=== PATIENT | male | born 1985 | race Caucasian/White ===

== ENCOUNTER 2021-01-09 04:29 | Emergency (ER) | payer OTHER, SELFPAY ==
[2021-01-09 05:21] VITALS: BP 173/95; PULSE 69; RESP 16; TEMP 36.3; O2SAT 97; BMI 25.1
--- NOTE | 2021-01-09 07:10 | ED.DENTAL ---
HPI - Dental/Oral General Chief complaint: Dental/Oral Stated complaint: left side tooth pain Time Seen by Provider: 01/09/21 04:35 Source: patient Mode of arrival: Ambulatory Limitations: no limitations History of Present Illness HPI Narrative: This is a 35-year-old male who has had dental pain at the tooth 13 since Sunday. Patient has been on antibiotics which arm oxacillin for the past 5 days. He has also had Percocet for pain. Patient states his pain has not been improving. He has not appreciate any fevers. No swelling, no skin changes, no difficulty with breathing. No change in voice but has not been speaking as much. Patient was not able to control his pain with Percocet, Tylenol and ibuprofen. He also tried clove oil. Patient had seen a dentist on Sunday who prescribed these and has a follow-up appointment on the . Patient denies any other major medical issues. No allergies to medications. Related Data Previous Rx's Medication Instructions Recorded clindamycin HCl 300 mg capsule 300 mg PO Q6H #40 cap 01/09/21 meloxicam 7.5 mg tablet (Mobic) 7.5 mg PO BID PRN #14 tab 01/09/21 oxycodone 5 mg tablet 5 mg PO Q4H PRN #10 tab 01/09/21 Allergies Allergy/AdvReac Type Severity Reaction Status Date / Time No Known Drug Allergies Allergy Verified 01/09/21 05:25 Review of Systems Review of Systems ROS Unobtainable: All systems reviewed & are unremarkable except as noted in HPI and below Patient History Social History Smoking Status: Current every day smoker Smoking Status: Current every day smoker alcohol intake frequency: 0-2 drinks per day Substance Use Type: marijuana Exam Narrative Exam Narrative: GEN: well nourished, well appearing male, alert and oriented x 3, patient appears to be in mild distress. HEENT: Atraumatic, pupils are equal round reactive to light, extraocular movements are intact, nares are clear, TMs are clear with no fluid, there is no conjunctival pallor. Throat is clear without any exudates, erythema, tonsillar enlargement or uvular deviation, no facial swelling. Patient has tooth missing at the location on the left upper. No erythema or skin changes noted. HEART: Regular rate and rhythm without murmur, clicks, rubs. LUNGS:Lungs clear to auscultation, no wheezes, rales, crackles, chest moves symmetrically ABD:bowel sounds normal, soft, non-tender, no guarding, rebound, rigidity, no masses noted, no hepatosplenomegaly NEURO:CN 2-12 intact, sensation normal SKIN: Rash, erythema or skin changes noted. Initial Vital Signs Initial Vital Signs: Vital Signs Temperature 97.3 F L 01/09/21 05:21 Pulse Rate 69 01/09/21 05:21 Respiratory Rate 16 01/09/21 05:21 Blood Pressure 173/95 H 01/09/21 05:21 Pulse Oximetry 97 01/09/21 05:21 Course Vital Signs Vital signs: Vital Signs - 8 hr 01/09/21 05:21 01/09/21 07:36 Temperature 97.3 F L Pulse Rate 69 50 L Respiratory Rate 16 18 Blood Pressure 173/95 H 129/69 Pulse Oximetry 97 96 Discharge Plan Departure Patient Disposition: Home Clinical Impression: Infection of tooth Instructions: Tooth Abscess, DI for Dental Pain Activity Restrictions/Additional Instructions: Follow-up with your dentist on the . You may wish to contact them to see if you could see sooner if you are not continue to have improvement with 2nd round of antibiotics. Take your newly prescribed antibiotics until completely gone. Stop taking amoxicillin. You may take oxycodone 1 tablet every 4-6 hours as needed for pain. You may take Tylenol up to a 1000 mg every 8 hours with this medication. You may also take Mobic or meloxicam 1 tablet every 12 hours as needed for pain. Prescriptions sent a [facility] in [place]. Please return to the emergency department for fevers, new swelling, warmth or redness of the face, mouth or cheek, swelling of your tongue, lip or oral pharynx, difficulty swallowing, stridor or other new or concerning symptoms. Prescriptions: New clindamycin HCl 300 mg capsule 300 mg PO Q6H Qty: 40 RF: 0 oxycodone 5 mg tablet 5 mg PO Q4H PRN (Reason: pain) Qty: 10 RF: 0 meloxicam [Mobic] 7.5 mg tablet 7.5 mg PO BID PRN (Reason: pain) Qty: 14 RF: 0
[2021-01-09 07:36] VITALS: BP 129/69; PULSE 50; RESP 18; O2SAT 96
--- NOTE | 2021-01-09 07:36 | PC.NURSE ---
Dental exam was referred to
== END 2021-01-09 07:37 | disposition home or self-care (01) ==
PROVIDERS: Emergency Provider Emergency Medicine
DX: K04.7 Periapical abscess without sinus (principal)
CPT/HCPCS: 99281